=== PATIENT | female | born 1995 | race Caucasian/White ===

== ENCOUNTER 2023-11-12 20:23 | Emergency (ER) | payer MEDICAID ==
[~2023-11-12] VITALS: Ht 154.9 cm; Wt 89.8 kg
[2023-11-12 21:08] VITALS: BP 128/74; PULSE 97; RESP 18; TEMP 97.5; O2SAT 99
[2023-11-12 22:55] LABS: BASOPHILS # (AUTO) 0.1 K/uL (0.00-0.22); BASOPHILS % (AUTO) 1.3 % (0.0-2.0); EOSINOPHILS # (AUTO) 0.3 K/uL (0-0.4); EOSINOPHILS % (AUTO) 4.9 % (0.0-4.0); HEMOGLOBIN 11.7 g/dL (12.0-16.0); LYMPHOCYTES # (AUTO) 1.8 K/uL (2.5-16.5); LYMPHOCYTES % (AUTO) 31.3 % (20.5-51.1); MEAN CORPUSCULAR HEMOGLOBIN 27 pg (27-31); MEAN CORPUSCULAR HGB CONC 34 g/dL (33-37); MONOCYTES # (AUTO) 0.5 K/uL (0.8-1.0); MONOCYTES % (AUTO) 8.4 % (1.7-9.3); NEUTROPHILS # (AUTO) 3.1 K/uL (1.8-7.7); NEUTROPHILS % (AUTO) 54.1 % (42.2-75.2); PLATELET COUNT (AUTO) 279 K/uL (140-450); RED BLOOD CELL COUNT(AUTO) 4.36 MIL/uL (4.20-5.40); RED CELL DISTRIBUTION WIDTH 14.9 % (11.6-13.7); WHITE BLOOD COUNT (AUTO) 5.8 K/uL (4.8-10.8)
[2023-11-12] MEDS: FAMOTIDINE 20 MG/2 ML VIAL IVP ONE (23:03)
[2023-11-12] MEDS: methylPREDNISolone SS 125 MG/2 ML VIAL IVP ONE (23:03)
[2023-11-12] MEDS: diphenhydrAMINE 50 MG/ML VIAL IVP ONE (23:06)
[2023-11-12 23:25] LABS: ALBUMIN 3.6 g/dL (3.4-5.0); ANION GAP 13.5 (8-16); CALCIUM 8.9 mg/dL (8.5-10.1); CARBON DIOXIDE 25.7 mmol/L (21-32); CREATININE 0.7 mg/dL (0.6-1.3); POTASSIUM 3.2 mmol/L (3.5-5.1); TOTAL BILIRUBIN 0.3 mg/dL (0.0-1.0); TOTAL PROTEIN, SERUM 7.8 g/dL (6.4-8.2)
[2023-11-12 23:27] LABS: LACTIC ACID 0.7 mmol/L (0.4-2.0)
[2023-11-13] MEDS: POTASSIUM CHLORIDE 10 MEQ TABER PO ONE (00:25)
[2023-11-13] MEDS ORDERED: PRED20TA5 PO (00:31)
[2023-11-13] MEDS ORDERED: DIPH25TA53 PO (00:31)
[2023-11-13] MEDS ORDERED: CEPH-588 PO (00:31)
[2023-11-13 00:35] VITALS: BP 128/74; PULSE 97; RESP 18; TEMP 36.39180; O2SAT 99
== END 2023-11-13 00:35 | disposition home or self-care (01) ==
LOC: MED 20:23
DX: L50.9 Urticaria, unspecified (principal); T78.49XA Other allergy, initial encounter; Z79.899 Other long term (current) drug therapy; X58.XXXA Exposure to other specified factors, initial encounter
CPT/HCPCS: 36415; 80053; 83605; 85025; 87081; 96374; 96375; 99284; J1200; J2930; J3490